=== PATIENT | female | born 1970 | race Caucasian/White ===

== ENCOUNTER 2016-08-11 22:56 | Emergency (ER) ==
[2016-08-11 23:38] LABS: URINE SOURCE CLEAN CATCH
[2016-08-11] MEDS ORDERED: NS 1,000 ML IV ONE (23:45)
[2016-08-11] MEDS ORDERED: TORADOL IV ONE (23:45)
[2016-08-11] MEDS ORDERED: TORADOL ONE (23:47)
[2016-08-11] MEDS ORDERED: NS 1,000 ML ONE (23:47)
--- NOTE | 2016-08-11 23:51 | PROVIDER DOCUMENTATION ---
HPI-Female /OB/Breast - General Chief Complaint: Flank Pain Stated Complaint: UTI Time Seen by Provider: 08/11/16 23:31 Source: reports: patient Allergies/Adverse Reactions: Patient Allergies Allergy/AdvReac Type Severity Reaction Status Date / Time Penicillins Allergy Intermediate RASH Verified 08/11/16 23:24 erythromycin base [From Eryc] AdvReac HIVES Verified 08/11/16 23:24 Home Medications: Home Medication List Medication Instructions Recorded Confirmed Last Taken Type Cephalexin [Keflex] 500 mg PO BID #20 capsule 08/12/16 Unknown Rx Hydrocodone/APAP 5 mg/325 mg 1 each PO Q6H PRN PRN #12 tablet 08/12/16 Unknown Rx [Charlotte-5] Ketorolac [Toradol] 10 mg PO Q6H PRN PRN #20 tablet 08/12/16 Unknown Rx Metoclopramide [Reglan] 10 mg PO Q6HR #15 tablet 08/12/16 Unknown Rx Tamsulosin [Flomax] 0.4 mg PO DAILY #10 capsule 08/12/16 Unknown Rx - History of Present Illness-Female /OB Nature of Presenting Problem: 45 yo female presents to ER with c/o right flank pain that started last night. She saw her PCP on Monday for physical and U/A showed blood and WBC in urine but patient was not symptomatic. Does patient report she is ?: No Location of complaint: reports: right flank Radiation: reports: RLQ Quality of Pain: reports: aching, throbbing Severity in ED: reports: moderate Onset/Duration: reports: 24 hours ago Timing: reports: still present, getting worse Context/Activities at Onset: reports: none Vaginal Symptoms: reports: no symptoms Vaginal Bleeding Amount: None Urinary Symptoms: reports: hematuria Associated Symptoms: reports: nausea Similar Symptoms Previously?: Yes Recently seen or treated by another doctor?: No Review of Systems - Adult - REVIEW OF SYSTEMS - ADULT Constitutional: reports: no symptoms reported Eyes: reports: no symptoms reported Ears, Nose, Mouth & Throat: reports: no symptoms reported Cardiovascular: reports: no symptoms reported Respiratory: reports: no symptoms reported Gastrointestinal: reports: no symptoms reported Genitourinary: reports: see HPI, flank pain, hematuria Musculoskeletal: reports: no symptoms reported Integumentary: reports: no symptoms reported Neurological: reports: no symptoms reported Psychiatric: reports: no symptoms reported Endocrine: reports: no symptoms reported Hematologic/Lymphatic: reports: no symptoms reported Allergic/Immunologic: reports: no symptoms reported All Other Systems: Reviewed and Negative Past History - Adult - PAST MEDICAL HISTORY-ADULT Review of Records: reports: Old Records Reviewed, Nursing Assessment Review, Medications Reviewed, Social history reviewed & non-contributory. Cardiovascular: reports: hyperlipidemia, other (occcasional PVCs) Respiratory: reports: denies history Gastrointestinal: reports: GERD Genitourinary: reports: kidney stones Musculoskeletal: reports: denies history Neurological: reports: denies history Psychiatric: reports: anxiety Endocrine/Immune: reports: denies history Other Conditions: reports: denies history - PRIOR SURGERIES/PROCEDURES Surgical/Procedure History: reports: other (stent placement for kidney stone) - IMMUNIZATION STATUS Childhood Immunizations: See Nurse Assessment Flu Vaccine: See Nurse Assessment - FAMILY HISTORY Family History: reviewed, not pertinent - SOCIAL HISTORY Smoking: cigarettes, greater than 1 pack/day (1.5 ppd) Provider spent 3-5 mins advising pt. on dangers of tobacco.: Discussed manners to quit use, and f/u contacts for add'l counseling. Substance Use: denies Alcohol Use Frequency: rarely Living Situation: family Physical Exam-General - PHYSICAL EXAM-ADULT Initial Vital Signs Reviewed: Yes - CONSTITUTIONAL General Appearance: appears well, alert, no apparent distress - EYES Eyes: PERRL/EOMI - HEAD, EARS, NOSE, MOUTH & THROAT HENMT: normocephalic/atraumatic - RESPIRATORY Respiratory: no respiratory distress - GASTROINTESTINAL (ABDOMEN) Abdominal Exam: normal bowel sounds, soft, tenderness (RUQ; mild suprapubic area ) - MUSCULOSKELETAL Back Exam: normal inspection, no vertebral tenderness, CVA tenderness (on right) Extremity: normal inspection - SKIN Integumentary: normal color, normal turgor, warm/dry - NEUROLOGIC Neurologic: grossly normal - PSYCHIATRIC Psych/Mental Status: normal mood/affect, normal thought content, normal thought process, oriented x 3 Progress - PLAN OF CARE/RESULTS Progress/Plan/Lab Results: 0110-Discussed results/dx/tx/discharge and follow up instructions with patient; she refused rocephin or any abx but keflex. She states that her WBC count was elevated at PCP office this week also. Laboratory Tests 08/11/16 08/11/16 08/11/16 23:28 23:57 23:57 WBC 14.84 H RBC 5.88 H Hgb 16.6 H Hct 48.7 H MCV 82.8 MCH 28.2 MCHC 34.1 RDW Std Deviation 15.0 H Plt Count 315 MPV 10.6 H Immature Gran % (Auto) 0.3 Neut % (Auto) 70.6 Lymph % (Auto) 21.7 [place] % (Auto) 6.1 Eos % (Auto) 1.1 Baso % (Auto) 0.2 Immature Gran # (Auto) 0.04 Neut # (Auto) 10.48 H Lymph # (Auto) 3.22 [place] # (Auto) 0.91 H Eos # (Auto) 0.16 Baso # (Auto) 0.03 Sodium 134 L Potassium 5.6 H Chloride 100 Carbon Dioxide 24 L Anion Gap 10 BUN 16 Creatinine 1.2 H Estimated GFR/1.73 m2 48 BUN/Creatinine Ratio 13 Glucose 110 H Calculated Osmolality 270 Calcium 10.1 Total Bilirubin < 0.15 L AST 29 ALT 16 Alkaline Phosphatase 91 Total Protein 7.9 Albumin 4.1 Globulin 4.0 Albumin/Globulin Ratio 1.0 Urine Source CLEAN CATCH Urine Color YELLOW Urine Clarity CLOUDY A Urine pH 6.5 Ur Specific [place] 1.020 Urine Protein TRACE A Urine Ketones TRACE Urine Blood 4+ Urine Nitrite NEGATIVE Urine Bilirubin NEGATIVE Urine Urobilinogen NORMAL Urine Microscopic RBC TNTC A Urine WBC TRACE A Urine Microscopic WBC <10 Ur Epithelial Cells <10 Urine Bacteria 1+ Urine Glucose NEGATIVE Orders Category Date Time Status IV Insertion ORDERED Care 08/11/16 23:46 Active Misc. NRSG Communication Order DIRECTED Care 08/12/16 01:20 Active RENAL STONE SEARCH [CT] Stat Exams 08/12/16 00:35 Taken CBC WITH ELECTRONIC DIFF [HEME] Stat Lab 08/11/16 23:57 Completed COMPREHENSIVE METABOLIC PANEL [CHEM] Stat Lab 08/11/16 23:[address] W/POSS RFLX CULT [URINALYSIS] Stat Lab 08/11/16 23:28 Completed URINE CULTURE [RM] Routine Lab 08/12/16 00:59 Ordered 0.9% Sodium Chloride Inj [Ns] 1,000 ml Med 08/11/16 23:47 Discontinued .ROUTE As Directed 0.9% Sodium Chloride Inj [Ns] 1,000 ml Med 08/11/16 23:45 Discontinued IV 999 mls/hr CephALEXIN [Keflex] Med 08/12/16 01:20 Discontinued 500 mg PO NOW ONE Ketorolac [Toradol] Med 08/11/16 23:47 Discontinued 30 mg .ROUTE .STK-MED ONE Ketorolac [Toradol] Med 08/11/16 23:45 Discontinued 30 mg IV NOW ONE Vital Signs - 24 hr 08/11/16 23:05 Temperature 99.2 F Pulse Rate 104 H Respiratory 20 Rate Blood Pressure 140/89 O2 Sat by Pulse 98 Oximetry - CT/MRI 1 CT Study: Renal Stone Impression: Abnormal (5mm stone at the right UPJ left ovarian cyst is likely functional but consider follow up to document resolution.) CT Results: Interpreted by Dr. Miguel Angel Bonilla Departure - Departure Time of Disposition Order: : DIAGNOSIS: Kidney stone on right side, Right flank pain Leukocytosis Qualifiers: Leukocytosis type: bandemia Qualified Code(s): D72.825 - Bandemia Disposition: HOME 01 Certified Medical Emergency: Emergent Condition: Good Additional Instructions: Follow up with primary care doctor this week. Stay well hydrated. Strain all urine. Take medications as prescribed. ED Follow Up Instructions: You have been treated by a care provider in the Emergency Department. These instructions are being provided to you so you can have an understanding of how to care for yourself upon discharge. Upon discharge from the Emergency Department, you are responsible for making arrangements for follow-up care by a physician of your choice. Take all prescribed medications as directed. Return to the Emergency Department immediately for any new or worsening symptoms. You may call the Physician Referral phone number at [phone] to obtain a list of Physicians who are taking new patients. Prescriptions: Tamsulosin [Flomax] 0.4 mg PO DAILY #10 capsule Cephalexin [Keflex] 500 mg PO BID #20 capsule Hydrocodone/APAP 5 mg/325 mg [[place]-5] 1 each PO Q6H PRN PRN #12 tablet PRN Reason: Pain Metoclopramide [Reglan] 10 mg PO Q6HR #15 tablet Ketorolac [Toradol] 10 mg PO Q6H PRN PRN #20 tablet PRN Reason: Pain Referrals: Luke Martinez DO [STAFF PHYSICIAN] - None,PCP [Primary Care Provider] - Bernardino Howe MD [STAFF PHYSICIAN] - Forms: Return to School/Parent Work Instructions: Acetaminophen; Hydrocodone tablets or capsules, Metoclopramide tablets, Leukocytosis, Kidney Stones, [id number], Cephalexin tablets or capsules, Tamsulosin capsules, Ketorolac tablets Attestation - Physician/ ARCHIE Attestation Patient care was provided by Advanced Practice Provider:: Yes Advanced Practice Provider:: Margot Croft Advanced Practice Provider documentation review:: The Mid-level provider documentation, treatment plan and medical decision making was reviewed by the physician who agrees with all treatment and medical decision making by the MLP.
[2016-08-12 00:03] LABS: MANUAL DIFF NEEDED? NO
[2016-08-12 00:08] LABS: BASO% 0.2 % (0.0-0.8); EOS# 0.16 X1000 (0.0-0.7); EOS% 1.1 % (0.0-10.0); HEMATOCRIT 48.7 % (37.0-47.0); HEMOGLOBIN 16.6 g/dL (12.0-16.0); IMM GRAN# 0.04 X1000 (0.0-0.04); IMM GRAN% 0.3 % (0.0-0.5); LYMPH# 3.22 X1000 (1.2-3.4); LYMPH% 21.7 % (20.5-51.1); MCH 28.2 PG (27-31); MCHC 34.1 g/dL (33-37); MCV 82.8 FL (81-99); MONO# 0.91 X1000 (0.11-0.59); MONO% 6.1 % (1.7-9.3); MPV 10.6 FL (7.4-10.4); NEUT% 70.6 % (42.2-75.2); PLT 315 X1000 (130-400); RBC 5.88 XMIL (4.2-5.4)
[2016-08-12 00:31] LABS: AGAP 10; ALBUMIN 4.1 g/dL (3.5-5.0); ALKALINE PHOSPHATASE 91 U/L (32-104); BUN 16 mg/dL (8-22); CALCIUM 10.1 mg/dL (8.8-10.2); CHLORIDE 100 mmol/L (98-107); COSMO 270; GOT 29 U/L (10-30); GPT 16 U/L (10-36); POTASSIUM 5.6 mmol/L (3.5-5.1); SODIUM 134 mmol/L (136-145); TCO2 24 mmol/L (25-35); TOTAL BILIRUBIN < 0.15 mg/dL (0.20-1.00); TOTAL PROTEIN 7.9 g/dL (6.3-8.3)
[2016-08-12 00:59] LABS: BILIRUBIN URINE NEGATIVE (NEGATIVE); BLOOD URINE 4+ (NEGATIVE); CLARITY CLOUDY (CLEAR); COLOR YELLOW; GLUCOSE URINE NEGATIVE (NEGATIVE); LEUKOCYTES URINE TRACE (NEGATIVE); NITRITE URINE NEGATIVE (NEGATIVE); PH URINE 6.5; PROTEIN URINE TRACE mg/dL (NEGATIVE); URINE CULTURE PL NEEDED? YES; URINE EPITHELIAL CELLS <10 /HPF (<10); URINE RBC TNTC /HPF (<10); URINE WBC <10 /HPF (<10); UROBILINOGEN URINE NORMAL
[2016-08-12] MEDS ORDERED: KEFLEX PO ONE (01:20)
[2016-08-12 01:42] VITALS: BP 133/84
--- NOTE | 2016-08-12 08:16 | Diag Imaging Result Document ---
PROCEDURE NAME: RENAL STONE SEARCH - 08/12/2016 CT ABDOMEN AND PELVIS WITHOUT ORAL OR INTRAVENOUS CONTRAST. TECHNIQUE: Dose reduction protocol. This is a renal stone technique. The upper abdomen is not included on the exam. FINDINGS: Normal spleen and adrenal glands. The gallbladder is contracted. No inflammation about the gallbladder or pancreas. No focal hepatic abnormality. There are bilateral nonobstructing renal stones. No perinephric inflammation. A 6 mm stone is found at the right ureteropelvic junction. The renal pelvis is not dilated. No hydronephrosis to either ureter. No aortic aneurysm. Mild atherosclerosis. No bowel obstruction. Normal appendix. No abscess. There is a left ovarian cyst measuring approximately 4 cm. Normal uterus. The urinary bladder is moderately distended and appears normal. IMPRESSION: 1. Bilateral nonobstructing renal stones in addition to a 6 mm right ureteropelvic stone. 2. There is a left ovarian cyst measuring approximately 4 cm. A preliminary report was given at 1:07 a.m..
== END 2016-08-12 01:42 | disposition home or self-care (01) ==
LOC: P.ED 22:56
DX: N20.0 Calculus of kidney (principal); D72.825 Bandemia; N83.202 Unspecified ovarian cyst, left side; R10.9 Unspecified abdominal pain; R10.31 Right lower quadrant pain; R31.9 Hematuria, unspecified; R11.0 Nausea; R10.811 Right upper quadrant abdominal tenderness; R10.819 Abdominal tenderness, unspecified site; E78.5 Hyperlipidemia, unspecified; F17.210 Nicotine dependence, cigarettes, uncomplicated; Z71.6 Tobacco abuse counseling; Z87.442 Personal history of urinary calculi
CPT/HCPCS: 74176; 80053; 81001; 85025; 87088; 96360; J1885; J7030

== ENCOUNTER 2016-08-13 22:25 | Emergency (ER) ==
[2016-08-13] MEDS ORDERED: PHENERGAN IV ONE (23:11)
[2016-08-13] MEDS ORDERED: SODIUM CHLORIDE 0.9% INJ ONE (23:11)
[2016-08-13] MEDS ORDERED: TORADOL IV ONE (23:11)
--- NOTE | 2016-08-13 23:15 | PROVIDER DOCUMENTATION ---
HPI-General Adult - General Chief Complaint: Flank Pain Stated Complaint: KIDNEY STONE Time Seen by Provider: 08/13/16 22:43 Source: patient Allergies/Adverse Reactions: Patient Allergies Allergy/AdvReac Type Severity Reaction Status Date / Time Penicillins Allergy Intermediate RASH Verified 08/13/16 22:44 erythromycin base [From Eryc] AdvReac HIVES Verified 08/13/16 22:44 Home Medications: Home Medication List Medication Instructions Recorded Confirmed Last Taken Type Cephalexin [Keflex] 500 mg PO BID #20 capsule 08/12/16 08/13/16 08/13/16 10:00 Rx Hydrocodone/APAP 5 mg/325 mg 1 each PO Q6H PRN PRN #12 tablet 08/12/16 08/13/16 08/13/16 19:00 Rx [Arminto-5] Ketorolac [Toradol] 10 mg PO Q6H PRN PRN #20 tablet 08/13/16 Unknown Rx - History of Present Illness -Gen Adult Nature of Presenting Problems: 45 y/o WF seen here 2 days ago for the same thing, dx of ureteral stone and the ureteropelvic junction at 6 mm. States the pain became severe tonight and the Arminto's are not helping. Also has been taking an antibiotic. Denies fevers or chills. Has had nausea no vomiting. Location of Pain/Injury: reports: back Pain Radiation: reports: no radiation Quality of Pain: reports: sharp, stabbing Severity: reports: moderate Onset/Duration: reports: 2 days ago Timing: reports: intermittent Associated Symptoms: reports: nausea. denies: anxiety, arm pain, back/neck pain , chest pain, constipation, cough, diaphoresis, diarrhea, dizziness, EENT symptoms, fatigue, fever/chills, genitourinary problems, headaches, heartburn, joint pain, loss of appetite, malaise, muscle aches, sinus congestion/drainage, rash, seizure, shortness of breath, sensory/motor loss, pain with inspiration, swelling/mass in abdomen, syncope, vomiting, weakness, trouble walking Review of Systems - Adult - REVIEW OF SYSTEMS - ADULT Constitutional: reports: no symptoms reported. denies: chills, fever, fatique Eyes: reports: no symptoms reported. denies: blurred vision, double vision, eye pain Ears, Nose, Mouth & Throat: reports: no symptoms reported. denies: ear pain, nose pain, throat pain Cardiovascular: reports: no symptoms reported. denies: chest pain, palpitations Respiratory: reports: no symptoms reported. denies: cough, shortness of breath , wheezing Gastrointestinal: reports: see HPI, abdominal pain, nausea. denies: diarrhea, vomiting Genitourinary: reports: see HPI, flank pain. denies: dysuria, discharge, frequency, incontinence Musculoskeletal: reports: no symptoms reported. denies: muscle aches Integumentary: reports: no symptoms reported. denies: rash Neurological: reports: no symptoms reported. denies: headache/migraines Psychiatric: reports: no symptoms reported Endocrine: reports: no symptoms reported Hematologic/Lymphatic: reports: no symptoms reported Allergic/Immunologic: reports: no symptoms reported All Other Systems: Reviewed and Negative Past History - Adult - PAST MEDICAL HISTORY-ADULT Review of Records: reports: Old Records Reviewed, Nursing Assessment Review, Medications Reviewed Major Childhood Illnesses: reports: denies history Cardiovascular: reports: hyperlipidemia, other (occcasional PVCs) Respiratory: reports: denies history Gastrointestinal: reports: GERD Obstetrical/Gynecological: reports: denies history Genitourinary: reports: kidney stones Musculoskeletal: reports: denies history Neurological: reports: denies history Psychiatric: reports: anxiety Endocrine/Immune: reports: denies history Other Conditions: reports: denies history - PRIOR SURGERIES/PROCEDURES Surgical/Procedure History: reports: other (stent placement for kidney stone) - IMMUNIZATION STATUS Childhood Immunizations: See Nurse Assessment Flu Vaccine: See Nurse Assessment - FAMILY HISTORY Family History: reviewed, not pertinent Physical Exam-General - PHYSICAL EXAM-ADULT Initial Vital Signs Reviewed: Yes - CONSTITUTIONAL General Appearance: appears well, alert, no apparent distress - EYES Eyes: PERRL/EOMI, pink conjunctivae - HEAD, EARS, NOSE, MOUTH & THROAT HENMT: normocephalic/atraumatic, moist mucous membranes - NECK Neck: normal inspection - RESPIRATORY Respiratory: chest non-tender, lungs clear, normal breath sounds, no pleuratic chest pain, no respiratory distress, no accessory muscle use. negative: respiratory distress, decreased breath sounds, accessory muscle use, crackles, rales, rhonchi, wheezing - CARDIOVASCULAR Cardiovascular: normal peripheral pulses, regular rate, rhythm - GASTROINTESTINAL (ABDOMEN) Abdominal Exam: normal bowel sounds, non tender, soft, no organomegaly, no pulsatile mass. negative: abdominal bruit, abnormal bowel sounds, distended, guarding, rigid, rebound, tenderness - MUSCULOSKELETAL Back Exam: normal inspection, no CVA tenderness, no vertebral tenderness Extremity: normal gait - SKIN Integumentary: normal color, normal turgor, warm/dry - NEUROLOGIC Neurologic: grossly normal, no motor/sensory deficits - PSYCHIATRIC Psych/Mental Status: normal mood/affect, normal thought content, normal thought process, oriented x 3 Progress - PLAN OF CARE/RESULTS Progress/Plan/Lab Results: Vital Signs Temp Pulse Resp BP 08/13/16 22:37 97.5 F L 105 H 20 166/87 Penicillins Allergy (Intermediate, Verified 08/13/16 22:44) RASH erythromycin base [From Eryc] Adverse Reaction (Verified 08/13/16 22:44) HIVES Cephalexin [Keflex] 500 mg PO BID #20 capsule 08/12/16 Hydrocodone/APAP 5 mg/325 mg [Arminto-5] 1 each PO Q6H PRN PRN #12 tablet Ketorolac [Toradol] 10 mg PO Q6H PRN PRN #20 tablet 08/13/16 Laboratory 08/13/16 08/13/16 23:00 23:00 WBC 20.66 H RBC 5.52 H Hgb 15.6 Hct 45.6 MCV 82.6 MCH 28.3 MCHC 34.2 RDW Std Deviation 14.9 H Plt Count 305 MPV 10.6 H Immature Gran % (Auto) 0.2 Neut % (Auto) 88.7 H Lymph % (Auto) 6.5 L [place] % (Auto) 4.5 Eos % (Auto) 0.0 Baso % (Auto) 0.1 Immature Gran # (Auto) 0.04 Neut # (Auto) 18.32 H Lymph # (Auto) 1.35 [place] # (Auto) 0.93 H Eos # (Auto) 0.00 Baso # (Auto) 0.02 Sodium 131 L Potassium 4.0 D Chloride 99 Carbon Dioxide 22 L Anion Gap 10 BUN 11 Creatinine 1.0 H Estimated GFR/1.73 m2 59 BUN/Creatinine Ratio 11 Glucose 153 H Calculated Osmolality 265 Calcium 9.3 Total Bilirubin 0.20 AST 16 ALT 13 Alkaline Phosphatase 88 Total Protein 6.9 Albumin 3.8 Globulin 3.0 Albumin/Globulin Ratio 1.0 Orders Category Date Time Status CBC WITH ELECTRONIC DIFF [HEME] Stat Lab 08/13/16 23:00 Completed CMP [COMPREHENSIVE METABOLIC PANEL] [CHEM] Stat Lab 08/13/16 23:00 Completed 0.9% Sodium Chloride Inj [Ns] 1,000 ml Med 08/13/16 23:20 Active IV 999 mls/hr Ketorolac [Toradol] Med 08/13/16 23:11 Discontinued 30 mg IV NOW ONE Promethazine [Phenergan] Med 08/13/16 23:11 Discontinued 25 mg IV NOW ONE Sodium Chloride 0.9% Med 08/13/16 23:11 Discontinued 10 ml INJ NOW ONE I believe the leukocytosis is a stress response. I discussed this with the patient who verbalized understanding and agreement to return for new or worsening symptoms. - REASSESSMENT Reassessment #1 Time Reassessed: 12:00 (patient no longer in pain after toradol and fluids) Status: improving Departure - Departure Time of Disposition Order: 23:57 DIAGNOSIS: Kidney stone on right side Leukocytosis Qualifiers: Leukocytosis type: lymphocytosis Qualified Code(s): D72.820 - Lymphocytosis ( symptomatic) Disposition: HOME 01 Certified Medical Emergency: Emergent Condition: Stable Additional Instructions: Follow up with the urologist referred last visit on Monday ED Follow Up Instructions: You have been treated by a care provider in the Emergency Department. These instructions are being provided to you so you can have an understanding of how to care for yourself upon discharge. Upon discharge from the Emergency Department, you are responsible for making arrangements for follow-up care by a physician of your choice. Take all prescribed medications as directed. Return to the Emergency Department immediately for any new or worsening symptoms. You may call the Physician Referral phone number at [phone] to obtain a list of Physicians who are taking new patients. Prescriptions: Ketorolac [Toradol] 10 mg PO Q6H PRN PRN #20 tablet PRN Reason: Pain Referrals: Karen Head MD [Primary Care Provider] - Forms: Return to School/Parent Work Instructions: Leukocytosis, Kidney Stones, [id number], Ketorolac tablets Attestation - Physician/ ARCHIE Attestation Patient care was provided by Advanced Practice Provider:: Yes Advanced Practice Provider:: Nishi Luz Advanced Practice Provider documentation review:: The Mid-level provider documentation, treatment plan and medical decision making was reviewed by the physician who agrees with all treatment and medical decision making by the MLP.
[2016-08-13 23:19] LABS: BASO% 0.1 % (0.0-0.8); HEMATOCRIT 45.6 % (37.0-47.0); HEMOGLOBIN 15.6 g/dL (12.0-16.0); IMM GRAN# 0.04 X1000 (0.0-0.04); IMM GRAN% 0.2 % (0.0-0.5); LYMPH# 1.35 X1000 (1.2-3.4); LYMPH% 6.5 % (20.5-51.1); MANUAL DIFF NEEDED? NO; MCH 28.3 PG (27-31); MCHC 34.2 g/dL (33-37); MCV 82.6 FL (81-99); MONO# 0.93 X1000 (0.11-0.59); MONO% 4.5 % (1.7-9.3); MPV 10.6 FL (7.4-10.4); NEUT% 88.7 % (42.2-75.2); PLT 305 X1000 (130-400); RBC 5.52 XMIL (4.2-5.4)
[2016-08-13] MEDS ORDERED: NS 1,000 ML IV ONE (23:20)
[2016-08-13 23:36] LABS: ALBUMIN 3.8 g/dL (3.5-5.0); CALCIUM 9.3 mg/dL (8.8-10.2); TOTAL BILIRUBIN 0.2 mg/dL (0.20-1.00); TOTAL PROTEIN 6.9 g/dL (6.3-8.3)
[2016-08-14 00:38] VITALS: BP 145/078
== END 2016-08-14 00:36 | disposition home or self-care (01) ==
LOC: P.ED 22:25
DX: N20.0 Calculus of kidney (principal); D72.829 Elevated white blood cell count, unspecified; R10.9 Unspecified abdominal pain; R11.0 Nausea; M54.9 Dorsalgia, unspecified; E78.5 Hyperlipidemia, unspecified; Z87.442 Personal history of urinary calculi
CPT/HCPCS: 80053; 85025; 96361; 96374; J1885; J2550; J7030

== ENCOUNTER 2016-08-18 08:43 | Day surgery (SDC) ==
[2016-08-18] MEDS ORDERED: LEVAQUIN 500 MG/D5W 100 ML ONE (09:44)
[2016-08-18] MEDS ORDERED: LR 1,000 ML ONE (09:44)
[2016-08-18] MEDS ORDERED: REGLAN ONE (09:59)
[2016-08-18] MEDS ORDERED: PEPCID ONE (09:59)
[2016-08-18] MEDS ORDERED: VALIUM ONE (10:20)
[2016-08-18] MEDS ORDERED: DIPRIVAN 1% ONE (12:10)
[2016-08-18 13:33] VITALS: BP 119/73
[2016-08-18] MEDS ORDERED: XYLOCAINE-MPF 2% ONE (14:44)
[2016-08-18] MEDS ORDERED: DECADRON ONE (14:44)
[2016-08-18] MEDS ORDERED: ZOFRAN ONE (14:44)
[2016-08-18] MEDS ORDERED: LASIX ONE (14:44)
--- NOTE | 2016-08-21 17:38 | OPERATIVE NOTE ---
PROCEDURE DATE: 08/18/2016 SURGEON: Phong Mariscal MD PREOP DIAGNOSES: 1. Right ureteropelvic junction stone. 2. Right flank pain. PROCEDURES: Right extracorporeal shockwave lithotripsy. INDICATIONS: A 45-year-old female who presented with significant right flank pain. She had CT scan which revealed 6 mm right ureteropelvic junction stone without significant hydronephrosis. She desires intervention. FINDINGS: Partial breakup of a stone with 3000 shocks delivered at a frequency 1.5 hertz, energy settings from 1 until 8 and total fluoroscopy time of 2 minutes and 57 seconds. DESCRIPTION OF PROCEDURE: After obtaining informed consent, patient brought to the operating room. Perioperative antibiotics and laryngeal mask anesthesia were administered. She was placed in supine position with the lithotripter over her right flank. The above-stated number of shocks were delivered; 20 mg of intravenous Lasix were administered. The stone showed partial fragmentation. She was extubated, taken to PACU for further recovery. ESTIMATED BLOOD LOSS: None. COMPLICATIONS: None. DISPOSITION: To PACU and subsequently home with prescriptions for Rousseau 7.5, (15), Cipro 250 (6).
== END 2016-08-18 13:15 | disposition home or self-care (01) ==
LOC: OPS 08:43
PROVIDERS: ATTEND Urology
DX: N20.1 Calculus of ureter (principal); F17.210 Nicotine dependence, cigarettes, uncomplicated
CPT/HCPCS: J1100; J1940; J2405; J7120